=== PATIENT | female | born 1975 | race Caucasian/White ===

== ENCOUNTER 2018-09-21 17:54 | Observation (INO) ==
[2018-09-21] MEDS ORDERED: 0.9 % Sodium Chloride 1,000 ML IVC ONE (18:15)
[2018-09-21] MEDS ORDERED: Isovue-370 500 ML BOTTLE IVP ONE ×2 (18:17→18:19)
[2018-09-21 18:37] LABS: Basophils % 0.2 %; Eosinophils % 0.1 %; Immature Granulocytes % 0.5 % (0-4); Mean Corpuscular Volume 86.2 fL (83.0-100.0)
[2018-09-21 18:39] LABS: Hematocrit 38.7 % (35.3-44.9); Hemoglobin 13.2 g/dL (11.5-15.4); Immature Platelets 10.2 % (1.1-6.1); Lymphocytes # 0.7 K/mcL (0.6-4.6); Lymphocytes % 7.6 %; Mean Corpuscular HGB Conc 34.1 g/dL (31.6-35.5); Mean Corpuscular Hemoglobin 29.4 pg (28.0-33.3); Mean Platelet Volume 12.1 fL (9.4-12.4); Monocytes # 0.4 K/mcL (0.0-1.3); Monocytes % 4.2 %; Neutrophils # 8.4 K/mcL (1.6-8.9); Platelet Count 89 K/mcL (140-400); Red Blood Count 4.49 M/mcL (3.82-4.97); Segmented Neutrophils % 87.4 %; White Blood Count 9.6 K/mcL (4.3-11.1)
[2018-09-21] MEDS ORDERED: Piperacillin/Tazobactam 3.375 GM in 0.9 % Sodium Chloride Mini Bag 100 ML IVPB ONE (18:43)
[2018-09-21 18:51] LABS: INR 1.1; Prothrombin Time 12.6 Seconds (9.4-12.1)
[2018-09-21 19:00] LABS: Alanine Aminotransferase 13 Units/L (7-52); Albumin 3.5 g/dL (3.5-5.7); Albumin/Globulin Ratio 1.2 (1.1-2.2); Alkaline Phosphatase 91 Units/L (34-104); Aspartate Amino Transferase 16 Units/L (13-39); BUN/Creatinine Ratio 18 (6-26); Bilirubin,Direct 0.4 mg/dL (0.0-0.2); Bilirubin,Indirect 0.8 mg/dL (0.0-1.2); Bilirubin,Total 1.2 mg/dL (0.3-1.0); Blood Urea Nitrogen 13 mg/dL (6-20); Calcium 8.8 mg/dL (8.6-10.3); Carbon Dioxide 24 mEq/L (23-29); Chloride 95 mEq/L (98-107); Glucose 221 mg/dL (70-105); Lipase < 3 Units/L (11-82); Magnesium 1.4 mg/dL (1.6-2.6); Osmolality,Calculated 271 (280-300); Phosphorous 1.9 mg/dL (2.7-4.5); Potassium 3.1 mEq/L (3.5-5.1); Sodium 127 mEq/L (136-145); Total Protein 6.5 g/dL (6.4-8.9); Troponin I < 0.03 ng/mL (< 0.04); eGFR For African Americans > 60 (> 60); eGFR For Non-African Americans > 60 (> 60)
[2018-09-21] MEDS ORDERED: 0.9 % Sodium Chloride 1,000 ML IVC STA (19:01)
[2018-09-21 19:16] LABS: Bilirubin,Urine Small (Negative); Blood,Urine Small (Negative); Clarity,Urine Cloudy (Clear); Color,Urine Dark Yellow (Yellow); Glucose,Urine (UA) Normal (Normal); Ketones,Urine Trace mg/dL (Negative); Leukocyte Esterase,Urine Large (Negative); Nitrite,Urine Positive (Negative); PH,Urine 5.5 pH Units (5.0-8.0); Protein,Urine 30 mg/dL (Neg-Trace); Specific Gravity,Urine 1.024 (1.010-1.025)
[2018-09-21 19:18] LABS: Hyaline Casts,Urine Moderate per lpf (None-Few); Squamous Epithelial Cell,Urine Many per lpf (None-Few); WBC,Urine 50-100 per hpf (0-3)
[2018-09-21 19:34] LABS: Amphetamine Screen,Urine Negative ng/mL (Cutoff=1000); Barbiturate Screen,Urine Negative ng/mL (Cutoff=200); Benzodiazepines Screen,Urine Negative ng/mL (Cutoff=200); Cannabinoid Screen,Urine Positive ng/mL (Cutoff = 50); Cocaine Screen,Urine Negative ng/mL (Cutoff= 300); Opiate Screen,Urine Positive ng/mL (Cutoff=300); Phencyclidine Screen,Urine Negative ng/mL (Cutoff=25)
[2018-09-21 19:37] LABS: Platelet Estimate Decreased (Normal)
[2018-09-21 19:50] LABS: Bacteria,Urine Moderate per hpf (None-Few)
[2018-09-21 20:20] LABS: VBG HCO3 22 mEq/L (21-27); VBG PCO2 28 mmHg (41-51); VBG PO2 198 mmHg (25-50)
[2018-09-21 21:14] LABS: Creatinine,Urine < 1 mg/dL; Sodium, Urine < 10.0 mEq/L
[2018-09-21] MEDS ORDERED: Potassium Effervescent 25 MEQ TABLET.EFF PO ONE (22:12)
[2018-09-22] MEDS ORDERED: Naloxone 0.4 MG/ML INJ IVP PRN (01:01)
[2018-09-22] MEDS ORDERED: Acetaminophen 325 MG TABLET PO PRN (01:01)
[2018-09-22] MEDS ORDERED: Ondansetron 4 MG/2 ML VIAL IVP PRN (01:01)
[2018-09-22] MEDS ORDERED: D5% in Water 1,000 ML IVC PRN (01:04)
[2018-09-22] MEDS ORDERED: Dextrose Gel 15 GM/37.5 ML TUBE PO PRN ×2 (01:04)
[2018-09-22] MEDS ORDERED: *HR* Dextrose 50 % in Water (Syg) 50 ML SYRINGE IVP PRN (01:04)
[2018-09-22 01:43] LABS: Hemoglobin 12.1 g/dL (11.5-15.4)
[2018-09-22 01:44] LABS: Basophils % 0.2 %; Eosinophils # 0.1 K/mcL (0.0-0.6); Eosinophils % 0.5 %; Hematocrit 36.1 % (35.3-44.9); Immature Granulocytes % 0.6 % (0-4); Immature Platelets 11.2 % (1.1-6.1); Lymphocytes # 1.8 K/mcL (0.6-4.6); Lymphocytes % 16.4 %; Mean Corpuscular HGB Conc 33.5 g/dL (31.6-35.5); Mean Corpuscular Hemoglobin 29.1 pg (28.0-33.3); Mean Corpuscular Volume 86.8 fL (83.0-100.0); Mean Platelet Volume 11.8 fL (9.4-12.4); Monocytes # 0.9 K/mcL (0.0-1.3); Monocytes % 8.2 %; Neutrophils # 7.9 K/mcL (1.6-8.9); Red Blood Count 4.16 M/mcL (3.82-4.97); Red Cell Distribution Width 14.1 % (11.5-14.5); Segmented Neutrophils % 74.1 %; White Blood Count 10.7 K/mcL (4.3-11.1)
[2018-09-22 01:46] LABS: Platelet Count 87 K/mcL (140-400)
[2018-09-22 02:08] LABS: Platelet Estimate Decreased (Normal)
[2018-09-22] MEDS: Insulin LISPRO 300 UNITS/3 ML VIAL SQ SCH ×4 (02:58→16:51)
[2018-09-22 03:15] LABS: Alanine Aminotransferase 11 Units/L (7-52); Albumin 2.9 g/dL (3.5-5.7); Albumin/Globulin Ratio 1.1 (1.1-2.2); Alkaline Phosphatase 75 Units/L (34-104); Aspartate Amino Transferase 11 Units/L (13-39); BUN/Creatinine Ratio 17 (6-26); Blood Urea Nitrogen 9 mg/dL (6-20); Calcium 8.2 mg/dL (8.6-10.3); Carbon Dioxide 23 mEq/L (23-29); Chloride 108 mEq/L (98-107); Globulin 2.6 g/dL (2.4-3.5); Glucose 127 mg/dL (70-105); Magnesium 2.2 mg/dL (1.6-2.6); Osmolality,Calculated 288 (280-300); Phosphorous 4.7 mg/dL (2.7-4.5); Sodium 139 mEq/L (136-145); Total Protein 5.5 g/dL (6.4-8.9); eGFR For African Americans > 60 (> 60); eGFR For Non-African Americans > 60 (> 60)
[2018-09-22] MEDS: 0.9 % Sodium Chloride 1,000 ML IVC SCH ×4 (04:07→15:10)
[2018-09-22] MEDS: Piperacillin/Tazobactam 3.375 GM in 0.9 % Sodium Chloride Mini Bag 100 ML IVPB SCH ×3 (04:08→18:31)
[2018-09-22 05:11] LABS: Estimated Average Glucose 134 mg/dl
[2018-09-22] MEDS: *HR* Heparin 5,000 UNIT/ML VIAL SQ SCH ×2 (06:12→14:00)
[2018-09-22] MEDS ORDERED: Ringers Solution, Lactated 1,000 ML IVC SCH (19:30)
[2018-09-22 19:36] VITALS: BP 108/62
[2018-09-22] MEDS ORDERED: Aminoglycoside Consult 1 EACH MC ONE (22:35)
== END 2018-09-22 22:36 | disposition left against medical advice (07) ==
LOC: 3ANU 17:54 → EMEROOARM 17:54 → SUATTDRO 22:44 → 3ANU 23:00
PROVIDERS: ADMIT Internal Medicine; ATTEND Pharmacist